=== PATIENT | female | born 1990 | race Caucasian/White ===

== ENCOUNTER 2024-05-13 16:13 | Emergency (ER) | payer SELFPAY ==
[2024-05-13] MEDS ORDERED: METOCLOPRAMIDE 10 MG/2mL INJ ONE (17:08)
[2024-05-13] MEDS ORDERED: DIPHENHYDRAMINE 50 MG/ML VIAL ONE (17:08)
[2024-05-13] MEDS ORDERED: NA CHLORIDE 0.9% 1,000 ML ONE (17:09)
[2024-05-13 17:29] LABS: Albumin 3.6 g/dL (3.4-5.0); Albumin/Globulin Ratio 1.1 (1.1-1.8); Anion Gap 6.8 mEq/L (5.0-15.0); Bilirubin Total 0.3 mg/dL (0.2-1.0); Globulin 3.3 g/dL (2.3-3.5); Potassium 3.8 mEq/L (3.5-5.1); Protein, Total 6.9 g/dL (6.4-8.2)
[2024-05-13 17:33] LABS: Absolute Basophils 0.1 K/uL (0-0.5); Absolute Eosinophils 0.1 K/uL (0-0.5); Absolute Lymphocytes (CBC) 1.1 K/uL (0.7-4.9); Absolute Monocytes 0.9 K/uL (0.1-1.3); Absolute Neutrophil 12.1 K/uL (1.8-8.0); Basophils % 0.6 % (0-1.3); Eosinophils % 0.5 % (0-4.4); Hematocrit 37.7 % (36.0-45.0); Hemoglobin 12.6 g/dL (12.0-15.0); Lymphocytes % 7.7 % (15.3-44.8); MCH 30.4 pg (27.0-35.0); MCHC 33.5 g/dL (32.0-36.0); MCV 90.6 fL (80-100); MPV 6.6 fL (7.6-11.3); Monocytes % 6.5 % (3.3-12.3); Neutrophils % 84.7 % (41.7-73.7); Platelets 365 thou/uL (152-406); RBC Red Blood Cell Count 4.16 M/uL (3.86-4.86); Red Cell Distribution Width 14.1 % (12.1-15.2)
--- NOTE | 2024-05-13 18:58 | RAD REPORT ---
EXAM: CT brain without contrast HISTORY: TRAUMA COMPARISON: None TECHNIQUE: Multiple contiguous axial images were obtained and a CT of the brain without contrast. Sag ittal and coronal reformats were performed. FINDINGS: No evidence of hydrocephalus, intracranial hemorrhage, or extra-axial fluid collection. The brain is normal in morphology. The calvarium is intact. Rounded and ovoid multiple hyperdense scalp lesions, nonspecific but suggest eric of sebaceous cysts. Mild mucosal thickening throughout the ethmoid air cells with a small left sphenoid sinus mucus retention cyst. Mastoid air cells are patent. IMPRESSION: No evidence of acute intracranial abnormality. EXAM: CT of the cervical spine without contrast HISTORY: TRAUMA COMPARISON: None TECHNIQUE: Multiple contiguous axial images were obtained in a CT of the cervical spine without contr ast. Sagittal and coronal reformats were performed. FINDINGS: The vertebral bodies demonstrate normal height and alignment. No evidence of acute fracture or subluxation.. No degenerative changes are present. No prevertebral soft tissue swelling is seen. The posterior facets are well aligned. Normal alignment of the skull base with the cervical spine is seen. The lung apices are unremarkable. IMPRESSION: No evidence of acute osseous abnormality of the cervical spine.
--- NOTE | 2024-05-13 19:27 | RAD REPORT ---
EXAM: CT CHEST, ABDOMEN AND PELVIS WITHOUT CONTRAST CLINICAL INDICATION: Female, 33 years old. CHEST PAIN TECHNIQUE: CT chest, abdomen and pelvis was performed, without IV contrast, as per department protoco l. Axial, sagittal and coronal reconstructions were obtained. One or more of the following dose reduction techniques were used: Automated exposure control, adjustment of the mA and/or kV according to the patient size, and/or iterative reconstruction. Unless otherwise specified, incidental findings do not require dedicated imaging follow-up. COMPARISON: No prior exam. FINDINGS: The lack of intravenous contrast limits the sensitivity of this exam for evaluation of solid visceral organs, vascular structures, and retroperitoneum. Chest: LOWER NECK/CHEST WALL: Visualized thyroid gland and soft tissues are normal. LUNGS AND AIRWAYS: Airways are clear. No evidence of airspace or interstitial process. No nodules. PLEURA: No pleural effusion. No pneumothorax. Hemidiaphragms are normally positioned. MEDIASTINUM AND LYMPH NODES: No mediastinal mass or fluid collection. Normal size mediastinal, hilar, and axillary lymph nodes. THORACIC AORTA: Normal caliber and configuration. PULMONARY ARTERIES: Normal caliber. HEART: Unremarkable. Abdomen/Pelvis LIVER: Normal in size and contour. No focal lesion. GALLBLADDER/BILE DUCTS: No biliary ductal dilatation. PANCREAS: No mass, ductal dilation, or jamison-pancreatic fluid. SPLEEN: Normal size. No focal lesion. ADRENALS: Normal; no mass. KIDNEYS AND URETERS: Normal size and contour. No hydronephrosis. GASTROINTESTINAL TRACT: Stomach is non-dilated. Small bowel has normal course and caliber. No colonic wall thickening or pericolonic inflammatory changes. PERITONEUM: No free fluid. LYMPH NODES: No lymphadenopathy. ABDOMINAL AORTA AND OTHER VESSELS: Normal caliber aorta and IVC. URINARY BLADDER: Normal contour. REPRODUCTIVE ORGANS: Dominant right adnexal cyst or follicle measuring 2.8 cm. MUSCULOSKELETAL: Pectus carinatum configuration. No acute or suspicious osseous abnormality. ADDITIONAL FINDINGS: None IMPRESSION: No acute or significant abnormalities in the chest, abdomen, or pelvis.
[2024-05-13 19:37] LABS: Specific Gravity 1.027 (1.005-1.030); Sqamous Epithelial <5 /HPF (None Seen); Urine Bacteria <20 /HPF (<20); Urine Bilirubin NEGATIVE (Negative); Urine Blood Trace (Negative); Urine Clarity Extremely Turbid (Clear); Urine Color Light-Yellow (Yellow); Urine Crystals Unidentified Few /HPF (None Seen); Urine Culture Reflex Order NOT NEEDED; Urine Glucose NEGATIVE (Negative); Urine Ketones TRACE (Negative); Urine Microscopic Reflex YN ORDER UMIC; Urine Mucus 3+ /HPF (None Seen); Urine Nitrite NEGATIVE (Negative); Urine Protein NEGATIVE (Negative); Urine RBC <5 /HPF (None Seen); Urine Urobilinogen Normal (Normal); Urine WBC <5 /HPF (<5)
--- NOTE | 2024-05-13 20:10 | ER ---
Nurse's Notes [facility] Name: Daniela Vu Age: 33 yrs Sex: Female : 1990 Arrival Date: 05/13/2024 Time: 16:13 Bed 26 Private MD: Diagnosis: Nausea with vomiting, unspecified;Tension-type headache Presentation: 05/13 16:32 Chief complaint: EMS states: toned out for n/v and fever with seizure last night and me1 then again today at 15:30 with EMS. zofran 4 mg SL administered. Patient states she fell out of bed last night with seizure and has pain to whole right side. HX: seizures. Coronavirus screen: Vaccine status: Patient reports being unvaccinated. Ebola Screen: No symptoms or risks identified at this time. Initial Sepsis Screen: Does the patient meet any 2 criteria? No. Patient's initial sepsis screen is negative. Does the patient have a suspected source of infection? No. Patient's initial sepsis screen is negative. Risk Assessment: Do you want to hurt yourself or someone else? Patient reports no desire to harm self or others. Onset of symptoms was May 12, 2024. 16:32 Method Of Arrival: EMS: [facility] oh1 16:32 Acuity: MAIK 3 me1 Triage Assessment: 16:35 General: Appears ill, unkempt, well developed, well nourished, Behavior is calm, me1 cooperative, appropriate for age, Reports. Pain: Complains of pain in right arm and right leg Pain does not radiate. Pain currently is 6 out of 10 on a pain scale. Quality of pain is described as aching, Pain began 1 day ago. Is continuous. EENT: No signs and/or symptoms were reported regarding the EENT system. Neuro: Level of Consciousness is awake, alert, obeys commands, Oriented to person, place, time, situation, Appropriate for age Seizure activity reported prior to arrival. Cardiovascular: Patient's skin is warm and dry. Respiratory: Airway is patent Respiratory effort is even, unlabored, Respiratory pattern is regular, symmetrical. GI: Reports nausea, vomiting. : No signs and/or symptoms were reported regarding the genitourinary system. Derm: Skin is intact, is healthy with good turgor, Skin is pink, warm \T\ dry. Musculoskeletal: No signs and/or symptoms reported regarding the musculoskeletal system. 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 - Infectious Disease History:: Denies. - Social history:: Smoking status: Patient denies any tobacco usage or history of. - Family history:: not pertinent. Screenin:[address] [facility] ED Fall Risk Assessment (Adult) History of falling in the last 3 months, me1 including since admission No falls in past 3 months (0 pts) Confusion or Disorientation No (0 pts) Intoxicated or Sedated No (0 pts) Impaired Gait No (0 pts) Mobility Assist Device Used No (0 pt) Altered Elimination No (0 pt) Score/Fall Risk Level 0 - 2 = Low Risk Maintained a safe environment, Provided non-skid footwear, Hourly rounding (assess needs \T\ fall precautionary measures) done. Abuse screen: Denies threats or abuse. Nutritional screening: No deficits noted. Tuberculosis screening: No symptoms or risk factors identified. Assessment: 16:37 General: See triage assessment.. GI: Reports nausea, vomiting. oh1 Vital Signs: 16:32 BP 101 / 73; Pulse 63; Resp 18; Temp 98.7; Pulse Ox 100% ; Weight 72.57 kg; Height 5 me1 ft. 4 in. ; Pain 6/10; 17:00 BP 106 / 71; Pulse 57; Resp 16; Pulse Ox 99% ; me1 18:00 BP 112 / 82; Pulse 59; Resp 16; Pulse Ox 99% ; me1 19:00 BP 109 / 71; Pulse 56; Resp 17; Pulse Ox 98% ; me1 20:00 BP 111 / 68; Pulse 63; Resp 16; Pulse Ox 96% ; me1 20:25 BP 109 / 70; Pulse 69; Resp 17; Temp 98.4; Pulse Ox 97% ; me1 21:00 BP 108 / 68; Pulse 69; Resp 16; Pulse Ox 93% ; me1 16:32 Body Mass Index 27.46 (72.57 kg, 162.56 cm) [facility] [place] 16:32 Pain Scale: Adult me1 ED Course: 16:31 Patient arrived in ED. me1 16:32 Ashwin Reina MD is Attending Physician. rt 16:34 Triage completed. me1 16:35 Arm band placed on Patient placed in an exam room. me1 16:37 Patient has correct armband on for positive identification. Bed in low position. Call me1 light in reach. Side rails up X2. Provided Education on: POC. Verbalized understanding.. Client placed on continuous cardiac and pulse oximetry monitoring. NIBP monitoring applied. Pulse ox on. NIBP on. 16:37 No provider procedures requiring assistance completed. me1 16:51 Stephanie Zaman, NAVNEET is Primary Nurse. me1 16:57 CBC with Diff Sent. me1 16:57 CMP Sent. me1 16:57 Lipase Sent. me1 16:57 Initial lab(s) drawn, by oh, sent to lab. Inserted saline lock: 22 gauge in right me1 antecubital area, using aseptic technique. 16:57 Test, Serum Sent. me1 18:16 CT Head C Spine In Process Unspecified. EDMS 18:16 CT Chest Abdomen Pelvis W/O Contrast In Process Unspecified. EDMS 19:30 Urine collected: clean catch specimen, cloudy, frandy colored. me1 19:30 Urinalysis w/ reflexes Sent. me1 20:57 Attending Physician role handed off by Ashwin Reina MD sp4 20:57 Deion Lorenzo MD is Attending Physician. sp4 22:04 IV discontinued, intact, bleeding controlled, No redness/swelling at site. Pressure me1 dressing applied. Administered Medications: 17:14 Drug: NS 0.9% IV 1000 ml IV at 1 bolus Per protocol; to be given as a bolus over 60 me1 minutes Route: IV; Rate: 1 bolus; Site: right antecubital; 19:06 Follow up: Response: No adverse reaction; IV Status: Completed infusion me1 17:15 Drug: metoCLOPramide IVP 10 mg IVP once; over 1 to 2 minutes Route: IVP; Site: right me1 antecubital; 19:06 Follow up: Response: No adverse reaction; Pain is decreased me1 17:15 Drug: diphenhydrAMINE IVP 25 mg IVP once Route: IVP; Site: right antecubital; me1 19:06 Follow up: Response: No adverse reaction; Pain is decreased me1 20:24 Drug: Ketorolac IVP 15 mg IVP once Route: IVP; Site: right antecubital; me1 20:33 Follow up: Response: No adverse reaction; Pain is unchanged, physician notified me1 20:39 Drug: Magnesium Sulfate IVPB 2 grams IVPB once over 2 hrs Route: IVPB; Infused Over: 2 me1 hrs; Site: right antecubital; 21:56 Follow up: Response: No adverse reaction; IV Status: Completed infusion me1 Medication: 16:37 VIS not applicable for this client. me1 Outcome: 20:10 Discharge ordered by MD. rt 21:56 Discharge ordered by . sp4 22:04 Discharged to home via wheelchair, with family, me1 22:04 Condition: stable 22:04 Discharge instructions given to patient, family, Instructed on discharge instructions, follow up and referral plans. medication usage, Demonstrated understanding of instructions, follow-up care, medications, Prescriptions given X 3, 22:04 Patient left the ED. me1 Signatures: Dispatcher [employer] EDAshwin Cerda MD MD rt Deion Lorenzo MD MD sp4 Stephanie Zaman RN RN me1 Corrections: (The following items were deleted from the chart) 20:33 20:24 Response: No adverse reaction; Pain is decreased me1 me1
--- NOTE | 2024-05-13 20:10 | EDPHYS ---
Physician Documentation [facility] Name: Daniela Vu Age: 33 yrs Sex: Female : 1990 Arrival Date: 05/13/2024 Time: 16:13 Bed 26 Private MD: ED Physician Deion Lorenzo HPI: 05/13 17:52 This 33 yrs old Female presents to ER via EMS with complaints of Nausea/Vomiting. rt 17:52 Patient states that she has a history of seizures that are brought on by stress. rt Patient states that she had a seizure last night that caused her to roll out of bed hitting her head as well as the lower part of her chest. Reports pain to these regions. Reports worsening headache. Reports having nausea, vomiting associated with this. Had a second seizure today. Return to baseline mental status. Denies other acute complaints at this time, symptoms are moderate in severity, no other aggravating or alleviating factors.. 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 - Infectious Disease History:: Denies. - Social history:: Smoking status: Patient denies any tobacco usage or history of. - Family history:: not pertinent. ROS: 17:52 Constitutional: Negative for fever, chills, and weight loss, Cardiovascular: Negative rt for chest pain, palpitations, and edema, Respiratory: Negative for shortness of breath, cough, wheezing, and pleuritic chest pain, MS/Extremity: Negative for injury and deformity, Skin: Negative for injury, rash, and discoloration, Neuro: Negative for headache, weakness, numbness, tingling, and seizure, 17:52 Abdomen/GI: Positive for nausea and vomiting, Negative for abdominal pain, 17:52 Neuro: Positive for seizure activity, Exam: 17:52 Constitutional: This is a well developed, well nourished patient who is awake, alert, rt and in no acute distress. Head/Face: Normocephalic, atraumatic. Chest/axilla: Normal chest wall appearance and motion. Nontender with no deformity. No lesions are appreciated. Cardiovascular: Regular rate and rhythm with a normal S1 and S2. No gallops, murmurs, or rubs. Normal PMI, no JVD. No pulse deficits. Respiratory: Lungs have equal breath sounds bilaterally, clear to auscultation and percussion. No rales, rhonchi or wheezes noted. No increased work of breathing, no retractions or nasal flaring. Abdomen/GI: Soft, non-tender, with normal bowel sounds. No distension or tympany. No guarding or rebound. No evidence of tenderness throughout. Skin: Warm, dry with normal turgor. Normal color with no rashes, no lesions, and no evidence of cellulitis. MS/ Extremity: Pulses equal, no cyanosis. Neurovascular intact. Full, normal range of motion. Neuro: Awake and alert, GCS 15, oriented to person, place, time, and situation. Cranial nerves II-XII grossly intact. Motor strength 5/5 in all extremities. Sensory grossly intact. Cerebellar exam normal. Normal gait. Vital Signs: 16:32 BP 101 / 73; Pulse 63; Resp 18; Temp 98.7; Pulse Ox 100% ; Weight 72.57 kg; Height 5 me1 ft. 4 in. ; Pain 6/10; 17:00 BP 106 / 71; Pulse 57; Resp 16; Pulse Ox 99% ; me1 18:00 BP 112 / 82; Pulse 59; Resp 16; Pulse Ox 99% ; me1 19:00 BP 109 / 71; Pulse 56; Resp 17; Pulse Ox 98% ; me1 20:00 BP 111 / 68; Pulse 63; Resp 16; Pulse Ox 96% ; me1 20:25 BP 109 / 70; Pulse 69; Resp 17; Temp 98.4; Pulse Ox 97% ; me1 21:00 BP 108 / 68; Pulse 69; Resp 16; Pulse Ox 93% ; me1 16:32 Body Mass Index 27.46 (72.57 kg, 162.56 cm) me1 16:32 Pain Scale: Adult me1 MDM: 16:34 Medical Screening Exam initiated rt 21:52 Differential diagnosis: Nonspecific abd pain, gastritis, viral gastroenteritis, sp4 gastroenteritis. Data reviewed: vital signs, nurses notes, EMS record, old medical records, radiologic studies, CT scan. 21:53 ED course: EXAM: CT brain without contrast HISTORY: TRAUMA COMPARISON: None TECHNIQUE: sp4 Multiple contiguous axial images were obtained and a CT of the brain without contrast. Sagittal and coronal reformats were performed. FINDINGS: No evidence of hydrocephalus, intracranial hemorrhage, or extra-axial fluid collection. The brain is normal in morphology. The calvarium is intact. Rounded and ovoid multiple hyperdense scalp lesions, nonspecific but suggestive of sebaceous cysts. Mild mucosal thickening throughout the ethmoid air cells with a small left sphenoid sinus mucus retention cyst. Mastoid air cells are patent. IMPRESSION: No evidence of acute intracranial abnormality. EXAM: CT of the cervical spine without contrast HISTORY: TRAUMA COMPARISON: None TECHNIQUE: Multiple contiguous axial images were obtained in a CT of the cervical spine without contrast. Sagittal and coronal reformats were performed. FINDINGS: The vertebral bodies demonstrate normal height and alignment. No evidence of acute fracture or subluxation.. No degenerative changes are present. No prevertebral soft tissue swelling is seen. The posterior facets are well aligned. Normal alignment of the skull base with the cervical spine is seen. The lung apices are unremarkable. IMPRESSION: No evidence of acute osseous abnormality of the cervical spine. . ED course: EXAM: CT CHEST, ABDOMEN AND PELVIS WITHOUT CONTRAST CLINICAL INDICATION: Female, 33 years old. CHEST PAIN TECHNIQUE: CT chest, abdomen and pelvis was performed, without IV contrast, as per department protocol. Axial, sagittal and coronal reconstructions were obtained. One or more of the following dose reduction techniques were used: Automated exposure control, adjustment of the mA and/or kV according to the patient size, and/or iterative reconstruction. Unless otherwise specified, incidental findings do not require dedicated imaging follow-up. COMPARISON: No prior exam. FINDINGS: The lack of intravenous contrast limits the sensitivity of this exam for evaluation of solid visceral organs, vascular structures, and retroperitoneum. Chest: LOWER NECK/CHEST WALL: Visualized thyroid gland and soft tissues are normal. LUNGS AND AIRWAYS: Airways are clear. No evidence of airspace or interstitial process. No nodules. PLEURA: No pleural effusion. No pneumothorax. Hemidiaphragms are normally positioned. MEDIASTINUM AND LYMPH NODES: No mediastinal mass or fluid collection. Normal size mediastinal, hilar, and axillary lymph nodes. THORACIC AORTA: Normal caliber and configuration. PULMONARYARTERIES: Normal caliber. HEART: Unremarkable. Abdomen/Pelvis LIVER: Normal in size and contour. No focal lesion. GALLBLADDER/BILE DUCTS: No biliary ductal dilatation. PANCREAS: No mass, ductal dilation, or jamison-pancreatic fluid. SPLEEN: Normal size. No focal lesion. ADRENALS: Normal; no mass. KIDNEYS AND URETERS: Normal size and contour. No hydronephrosis. GASTROINTESTINAL TRACT: Stomach is non-dilated. Small bowel has normal course and caliber. No colonic wall thickening or pericolonic inflammatory changes. PERITONEUM: No free fluid. LYMPH NODES: No lymphadenopathy. ABDOMINAL AORTA AND OTHER VESSELS: Normal caliber aorta and IVC. URINARYBLADDER: Normal contour. REPRODUCTIVE ORGANS: Dominant right adnexal cyst or follicle measuring 2.8 cm. MUSCULOSKELETAL: Pectus carinatum configuration. No acute or suspicious osseous abnormality. ADDITIONAL FINDINGS: None IMPRESSION: No acute or significant abnormalities in the chest, abdomen, or pelvis. . 05/13 16:47 Order name: CBC with Diff; Complete Time: 20:03 rt 05/13 16:47 Order name: CMP; Complete Time: 20:03 rt 05/13 16:47 Order name: Lipase; Complete Time: 20:03 rt 05/13 16:47 Order name: Urinalysis w/ reflexes; Complete Time: 20:03 rt 05/13 16:47 Order name: Test, Serum; Complete Time: 20:03 rt 05/13 16:47 Order name: CT Head C Spine; Complete Time: 20:03 rt 05/13 16:47 Order name: CT Chest Abdomen Pelvis W/O Contrast; Complete Time: 20:03 rt 05/13 16:47 Order name: IV Saline Lock; Complete Time: 16:57 rt 05/13 16:47 Order name: Labs collected and sent; Complete Time: 16:57 rt Administered Medications: 17:14 Drug: NS 0.9% IV 1000 ml IV at 1 bolus Per protocol; to be given as a bolus over 60 me1 minutes Route: IV; Rate: 1 bolus; Site: right antecubital; 19:06 Follow up: Response: No adverse reaction; IV Status: Completed infusion me1 17:15 Drug: metoCLOPramide IVP 10 mg IVP once; over 1 to 2 minutes Route: IVP; Site: right me1 antecubital; 19:06 Follow up: Response: No adverse reaction; Pain is decreased me1 17:15 Drug: diphenhydrAMINE IVP 25 mg IVP once Route: IVP; Site: right antecubital; me1 19:06 Follow up: Response: No adverse reaction; Pain is decreased me1 20:24 Drug: Ketorolac IVP 15 mg IVP once Route: IVP; Site: right antecubital; me1 20:33 Follow up: Response: No adverse reaction; Pain is unchanged, physician notified me1 20:39 Drug: Magnesium Sulfate IVPB 2 grams IVPB once over 2 hrs Route: IVPB; Infused Over: 2 me1 hrs; Site: right antecubital; 21:56 Follow up: Response: No adverse reaction; IV Status: Completed infusion me1 Disposition Summary: 05/13/24 21:56 Discharge Ordered Notes: Location: Home(05/13/24 21:56) sp4 Problem: new(05/13/24 21:56) sp4 Symptoms: have improved(05/13/24 21:56) sp4 Condition: Stable(05/13/24 21:56) sp4 Diagnosis - Nausea with vomiting, unspecified sp4 - Tension-type headache sp4 Followup: sp4 - With: Private Physician - When: 7 - 10 days - Reason: Recheck today's complaints Discharge Instructions: - Discharge Summary Sheet sp4 - Nausea and Vomiting, Adult sp4 Forms: - Patient Portal Instructions sp4 Prescriptions: - Fioricet 50-300-40 mg Oral capsule - take 1 capsule ORAL route every 6 hours PRN headache; 30 capsule; Refills: 0, sp4 Product Selection Permitted - Zofran 4 mg Oral tablet - take 1 tablet ORAL route every 12 hours As needed; 30 tablet; Refills: 0, sp4 Product Selection Permitted Signatures: Dispatcher [employer] Ashwin Campbell MD MD rt Deion Lorenzo MD MD sp4 Stephanie Zaman RN RN me1 Corrections: (The following items were deleted from the chart) 20:32 20:10 Home rt rt 20:32 20:10 new rt rt 20:32 20:10 have improved rt rt 20:32 20:10 Stable rt rt 20:32 20:10 Breakthrough seizure rt rt 20:32 20:10 Headache rt rt 20:32 20:10 Nausea and vomiting rt rt
[2024-05-13] MEDS ORDERED: KETOROLAC 30 MG/ML INJ ONE (20:22)
[2024-05-13] MEDS ORDERED: Magnesium Sulfate 2gm IVPB 2 G/50 ML BAG IV ONE (20:35)
[2024-05-13 22:36] VITALS: TEMP 98.4
[2024-05-13 22:38] VITALS: BP 108/68; O2SAT 93
== END 2024-05-13 22:04 | disposition home or self-care (01) ==
LOC: ER 16:13
DX: R11.2 Nausea with vomiting, unspecified (principal); G44.209 Tension-type headache, unspecified, not intractable
CPT/HCPCS: 36415; 70450; 71250; 72125; 74176; 80053; 81001; 83690; 84703; 85025; 96361; 96365; 96375; 99284; J1200; J2765; J3475; J7030